=== PATIENT | male | born 1950 | race Two or more races ===

== ENCOUNTER 2024-03-14 18:43 | Emergency (ER) | payer OTHER ==
[~2024-03-14] VITALS: Ht 182.9 cm; Wt 90.9 kg
[2024-03-14 18:43] VITALS: BP 81/63; PULSE 113; RESP 24; O2SAT 67
[2024-03-14] MEDS ORDERED: EPINEPHrine HCL 1 MG/10 ML SYRG IV ONE (18:44)
[2024-03-14 18:46] VITALS: PULSE 75
[2024-03-14] MEDS ORDERED: NOREPINEPHRINE 8 MG/250ML KIT 250 ML IV ONE (18:52)
[2024-03-14] MEDS ORDERED: EPINEPHrine HCL 250 ML IV ONE (19:02)
[2024-03-14] MEDS ORDERED: EPINEPHrine HCL 1 MG/10 ML SYRG ONE (19:10)
[2024-03-14] MEDS ORDERED: PROPOFOL 100 ML IV SCH (19:30)
[2024-03-14] MEDS ORDERED: MIDAZOLAM DRIP 50 mg/50mL 50 ML IV SCH (19:30)
[2024-03-14] MEDS ORDERED: EPINEPHrine HCL 250 ML IV SCH (19:30)
[2024-03-14] MEDS ORDERED: NOREPINEPHRINE 8 MG/250ML KIT 250 ML IV SCH (19:30)
== END 2024-03-14 19:10 ==
LOC: EDBD 18:43 → ER 18:43
DX: I46.9 Cardiac arrest, cause unspecified (principal); J96.00 Acute respiratory failure, unspecified whether with hypoxia or hypercapnia; R40.4 Transient alteration of awareness; I10 Essential (primary) hypertension; E78.5 Hyperlipidemia, unspecified
CPT/HCPCS: 36680; 92950; 93005; 99285; J0171; J3475; J7042